=== PATIENT | female | born 1970 | race Caucasian/White ===

== ENCOUNTER 2019-03-01 12:39 | Inpatient (IN) ==
[2019-03-01] MEDS ORDERED: *HR* LORazepam 1 MG TABLET PO ONE (12:43)
--- NOTE | 2019-03-01 12:45 | Emergency Department Note ---
Disposition Clinical Impression: Acute psychosis, Homicidal ideation Disposition: Still a Patient Condition: Good Psych HPI - General Chief Complaint: ED Psychiatric Symptoms Stated Complaint: Anxiety, HI Time Seen by Provider: 03/01/19 12:40 Source: patient Mode of arrival: ambulatory Limitations: no limitations Nursing Notes Reviewed: Yes Vital Signs Reviewed: Yes - History of Present Illness HPI Narrative: Patient presenting to the ED via EMS for anxiety and homicidal ideation. Patient reports she had a recent fall out with her boyfriend and is supposed to be on medication for her chronic mental health disease, however, has been unable to take it for the last 3 days. She has been having auditory and visual hallucinations and having thoughts of harming other people. She also reports that she has been having paranoia about other people attempting to hurt her. She denies any headache or changes in vision. No neck, back, chest or abdominal pain. She denies any ingestions or suicide ideation. - Related Data Home Medications Medication Instructions Recorded Confirmed Escitalopram [Lexapro] 20 mg PO DAILY 03/01/19 03/01/19 Gabapentin [Neurontin] 400 mg PO TID 03/01/19 03/01/19 hydrOXYzine HCl [Hydroxyzine HCl] 50 mg PO Q6H PRN 03/01/19 03/01/19 Allergies Allergy/AdvReac Type Severity Reaction Status Date / Time No Known Allergies Allergy Verified 03/01/19 19:23 Review of Systems: As reviewed in the HPI. All other systems reviewed are negative or normal. Past Medical History - Past Medical History Attestation: Yes The following information was validated with the patient. 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 - Social History Smoking Status: Current every day smoker Smokeless Tobacco Status: No Alcohol use: Reports: occasionally Drug use: Reports: none Physical Exam CONSTITUTIONAL: [well appearing, alert and in no acute distress] EYES: [EOMI, clear conjunctiva, PERRLA] HENT: [Normocephalic, atraumatic, moist mucus membranes, normal oropharynx] NECK: [normal inspection, full ROM, trachea midline, no obvious swelling] PULMONARY: [normal lung sounds bilaterally, normal chest rise and fall, no respiratory distress or stridor, no wheezes, no rales, no rhonchi CARDIOVASCULAR: [regular rate, regular rhythm, normal heart sounds, no murmurs, distal extremities are warm and well perfused] GASTROINSTESTINAL: [soft, non-tender, non-rigid, non-distended, no guarding, no rebound, normal bowel sounds] GENITOURINARY/RECTAL: [deferred] NEUROLOGIC: [Alert, oriented x3, normal speech, moves all extremities] EXTREMITIES: [Normal inspection, full ROM, no tenderness, no pedal edema, normal capillary refill] MUSCULOSKELETAL: [no gross deformities, atraumatic] SKIN: [No cyanosis, no diaphoresis, normal color, warm, no rash] PSYCHIATRIC: [normal mood and affect] Course Vital Signs Temperature 98.3 F 03/01/19 12:41 Pulse Rate 95 03/01/19 12:41 Respiratory Rate 16 03/01/19 12:41 Blood Pressure 121/84 03/01/19 12:41 O2 Sat by Pulse Oximetry 95 03/01/19 12:41 Temperature 97.6 F 03/01/19 16:50 Pulse Rate 86 03/01/19 16:50 Respiratory Rate 16 03/01/19 16:50 Blood Pressure 102/66 03/01/19 16:50 O2 Sat by Pulse Oximetry 97 03/01/19 16:50 Oxygen Delivery Oxygen Delivery Room Air Psych - Lab Data Result diagrams: 03/01/19 12:43 03/01/19 12:43 Lab Results 03/01/19 03/01/19 03/01/19 Range/Units 12:43 12:43 12:43 WBC 7.2 (4.3-11.1) K/mcL RBC 3.93 (3.82-4.97) M/mcL Hgb 8.9 L (11.5-15.4) g/dL Hct 29.8 L (35.3-44.9) % MCV 75.8 L (83.0-100.0) fL MCH 22.6 L (28.0-33.3) pg MCHC 29.9 L (31.6-35.5) g/dL RDW 18.4 H (11.5-14.5) % Plt Count 434 H (140-400) K/mcL MPV 8.6 L (9.4-12.4) fL Immature Gran % 0.1 (0-4) % Seg Neutrophils % 61.2 % Lymphocytes % 30.9 % Monocytes % 6.4 % Eosinophils % 0.7 % Basophils % 0.7 % Neutrophils # 4.4 (1.6-8.9) K/mcL Lymphocytes # 2.2 (0.6-4.6) K/mcL Monocytes # 0.5 (0.0-1.3) K/mcL Eosinophils # 0.1 (0.0-0.6) K/mcL Basophils # 0.1 (0.0-0.2) K/mcL Sodium 138 (136-145) mEq/L Potassium 4.0 (3.5-5.1) mEq/L Chloride 108 H (98-107) mEq/L Carbon Dioxide 22 L (23-29) mEq/L BUN 5 L (6-20) mg/dL Creatinine 0.73 (0.60-1.20) mg/dL Est GFR ( Amer) > 60 (> 60) Est GFR (Non-Af Amer) > 60 (> 60) BUN/Creatinine Ratio 7 (6-26) Glucose 94 (70-105) mg/dL Calculated Osmolality 283 (280-300) Calcium 8.9 (8.6-10.3) mg/dL TSH 3.563 (0.340-5.600) mcIU/mL Serum , Qual Negative (Negative) Salicylates 13.8 L (15.0-30.0) mg/dL Acetaminophen < 10 L (10-20) mcg/mL Ethyl Alcohol < 10 (Less than 10) mg/dL Psychiatric Medical Clearance - Medical Clearance Checklist Medical History: No Social History Section defined Current Vitals: Last Vital Signs Temp 97.6 F 03/01/19 16:50 Pulse 86 03/01/19 16:50 Resp 16 03/01/19 16:50 BP 102/66 03/01/19 16:50 Pulse Ox 97 03/01/19 16:50 Psychiatric Lab Panel: Drug Levels and Toxicity 03/01/19 12:43 Acetaminophen < 10 L Ethyl Alcohol < 10 Abnormal Labs: Abnormal lab results Hgb 8.9 g/dL (11.5-15.4) L 03/01/19 12:43 Hct 29.8 % (35.3-44.9) L 03/01/19 12:43 MCV 75.8 fL (83.0-100.0) L 03/01/19 12:43 MCH 22.6 pg (28.0-33.3) L 03/01/19 12:43 MCHC 29.9 g/dL (31.6-35.5) L 03/01/19 12:43 RDW 18.4 % (11.5-14.5) H 03/01/19 12:43 Plt Count 434 K/mcL (140-400) H 03/01/19 12:43 MPV 8.6 fL (9.4-12.4) L 03/01/19 12:43 Chloride 108 mEq/L (98-107) H 03/01/19 12:43 Carbon Dioxide 22 mEq/L (23-29) L 03/01/19 12:43 BUN 5 mg/dL (6-20) L 03/01/19 12:43 Salicylates 13.8 mg/dL (15.0-30.0) L 03/01/19 12:43 Acetaminophen < 10 mcg/mL (10-20) L 03/01/19 12:43 Statement of Medical Clearance: I have evaluated the patient, reviewed diagnostic information, and certify that the patient's medical condition is sufficiently stable that transfer to the psychiatric unit does not pose a significant risk of deterioration.
[2019-03-01 13:13] LABS: Basophils # 0.1 K/mcL (0.0-0.2); Basophils % 0.7 %; Eosinophils # 0.1 K/mcL (0.0-0.6); Eosinophils % 0.7 %; Hematocrit 29.8 % (35.3-44.9); Hemoglobin 8.9 g/dL (11.5-15.4); Immature Granulocytes % 0.1 % (0-4); Lymphocytes # 2.2 K/mcL (0.6-4.6); Lymphocytes % 30.9 %; Mean Corpuscular HGB Conc 29.9 g/dL (31.6-35.5); Mean Corpuscular Hemoglobin 22.6 pg (28.0-33.3); Mean Corpuscular Volume 75.8 fL (83.0-100.0); Mean Platelet Volume 8.6 fL (9.4-12.4); Monocytes # 0.5 K/mcL (0.0-1.3); Monocytes % 6.4 %; Neutrophils # 4.4 K/mcL (1.6-8.9); Platelet Count 434 K/mcL (140-400); Red Blood Count 3.93 M/mcL (3.82-4.97); Red Cell Distribution Width 18.4 % (11.5-14.5); Segmented Neutrophils % 61.2 %
[2019-03-01 13:26] LABS: Acetaminophen < 10 mcg/mL (10-20); BUN/Creatinine Ratio 7 (6-26); Blood Urea Nitrogen 5 mg/dL (6-20); Calcium 8.9 mg/dL (8.6-10.3); Carbon Dioxide 22 mEq/L (23-29); Chloride 108 mEq/L (98-107); Ethanol < 10 mg/dL (Less than 10); Glucose 94 mg/dL (70-105); Osmolality,Calculated 283 (280-300); Salicylate 13.8 mg/dL (15.0-30.0); Sodium 138 mEq/L (136-145); eGFR For Non-African Americans > 60 (> 60)
[2019-03-01 13:39] LABS: Thyroid Stimulating Hormone 3.563 mcIU/mL (0.340-5.600)
--- NOTE | 2019-03-01 14:26 | Emergency Department Note ---
Disposition Clinical Impression: Acute psychosis, Homicidal ideation Disposition: Still a Patient Condition: Good Forms: ED Satisfaction Letter General Adult HPI - General Chief complaint: ED Psychiatric Symptoms Stated complaint: Anxiety, HI Time Seen by Provider: 03/01/19 12:40 Source: patient Mode of arrival: ambulatory Limitations: no limitations - History of Present Illness Pain Scale: 0 - Related Data Home Medications Medication Instructions Recorded Confirmed Citalopram [CeleXA] 20 mg PO DAILY 03/01/19 03/01/19 Gabapentin [Neurontin] 400 mg PO TID 03/01/19 03/01/19 hydrOXYzine HCl [Hydroxyzine HCl] 50 mg PO Q6H 03/01/19 03/01/19 Allergies Allergy/AdvReac Type Severity Reaction Status Date / Time No Known Allergies Allergy Verified 03/01/19 11:12 Past Medical History - Past Medical History Medical history: Reports: no medical history Psychiatric history: Reports: bipolar, depression, schizophrenia, previous psychiatric hospitalization 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 - Social History Smoking Status: Current every day smoker Smokeless Tobacco Status: No Alcohol use: Reports: occasionally Drug use: Reports: none Physical Exam - General Limitations: no limitations General appearance: in no apparent distress Course Vital Signs Temperature 98.3 F 03/01/19 12:41 Pulse Rate 95 03/01/19 12:41 Respiratory Rate 16 03/01/19 12:41 Blood Pressure 121/84 03/01/19 12:41 O2 Sat by Pulse Oximetry 95 03/01/19 12:41 Temperature 98.3 F 03/01/19 12:41 Pulse Rate 95 03/01/19 12:41 Respiratory Rate 16 03/01/19 12:41 Blood Pressure 121/84 03/01/19 12:41 O2 Sat by Pulse Oximetry 95 03/01/19 12:41 Oxygen Delivery Oxygen Delivery Room Air Medical Decision Making - Lab Data Result diagrams: 03/01/19 12:43 03/01/19 12:43 Lab Results 03/01/19 03/01/19 03/01/19 Range/Units 12:43 12:43 12:43 WBC 7.2 (4.3-11.1) K/mcL RBC 3.93 (3.82-4.97) M/mcL Hgb 8.9 L (11.5-15.4) g/dL Hct 29.8 L (35.3-44.9) % MCV 75.8 L (83.0-100.0) fL MCH 22.6 L (28.0-33.3) pg MCHC 29.9 L (31.6-35.5) g/dL RDW 18.4 H (11.5-14.5) % Plt Count 434 H (140-400) K/mcL MPV 8.6 L (9.4-12.4) fL Immature Gran % 0.1 (0-4) % Seg Neutrophils % 61.2 % Lymphocytes % 30.9 % Monocytes % 6.4 % Eosinophils % 0.7 % Basophils % 0.7 % Neutrophils # 4.4 (1.6-8.9) K/mcL Lymphocytes # 2.2 (0.6-4.6) K/mcL Monocytes # 0.5 (0.0-1.3) K/mcL Eosinophils # 0.1 (0.0-0.6) K/mcL Basophils # 0.1 (0.0-0.2) K/mcL Sodium 138 (136-145) mEq/L Potassium 4.0 (3.5-5.1) mEq/L Chloride 108 H (98-107) mEq/L Carbon Dioxide 22 L (23-29) mEq/L BUN 5 L (6-20) mg/dL Creatinine 0.73 (0.60-1.20) mg/dL Est GFR ( Amer) > 60 (> 60) Est GFR (Non-Af Amer) > 60 (> 60) BUN/Creatinine Ratio 7 (6-26) Glucose 94 (70-105) mg/dL Calculated Osmolality 283 (280-300) Calcium 8.9 (8.6-10.3) mg/dL TSH 3.563 (0.340-5.600) mcIU/mL Serum , Qual Negative (Negative) Salicylates 13.8 L (15.0-30.0) mg/dL Acetaminophen < 10 L (10-20) mcg/mL Ethyl Alcohol < 10 (Less than 10) mg/dL Attestation Statement - Attestation Attestation: I examined this patient and my medical decision-making was reviewed with the Resident Physician. I agree with the documented findings, disposition and treatment plan as described except to the extent set forth below. 48 year old female presents to the ED from [facility] for pysch evaluation adn has a histor of delusional schizophrenia and recently became homicidal towards her boyfriend. MEdically cleared and 1A has been consulted
[2019-03-01] MEDS ORDERED: Haloperidol Lactate 5 MG/ML VIAL IM PRN (16:22)
[2019-03-01] MEDS ORDERED: Mag Hydrox/Al Hydrox/Simeth 30 ML UDC PO PRN (16:22)
[2019-03-01] MEDS ORDERED: *HR* LORazepam 2 MG/ML VIAL IM PRN (16:22)
[2019-03-01] MEDS ORDERED: traZODone 50 MG TABLET PO PRN (16:22)
[2019-03-01] MEDS ORDERED: hydrOXYzine pamoate 25 MG CAPSULE PO PRN (16:22)
[2019-03-01] MEDS ORDERED: *HR* LORazepam 1 MG TABLET PO PRN (16:22)
[2019-03-01] MEDS ORDERED: MOM Conc 10 ML UD.LIQ PO PRN (16:22)
[2019-03-01] MEDS: Ibuprofen 400 MG TABLET PO PRN (20:23)
[2019-03-01] MEDS: Nicotine 21 MG PATCH.TD24 TD SCH (20:25)
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
[2019-03-02] MEDS: Gabapentin 400 MG CAPSULE PO SCH ×3 (09:53→20:43)
[2019-03-02] MEDS: Nicotine 21 MG PATCH.TD24 TD SCH (09:53)
[2019-03-02] MEDS: Ibuprofen 400 MG TABLET PO PRN (11:50)
[2019-03-02] MEDS: hydrOXYzine pamoate 25 MG CAPSULE PO PRN (19:12)
[2019-03-03] MEDS: Gabapentin 400 MG CAPSULE PO SCH ×3 (08:56→20:15)
[2019-03-03] MEDS: Nicotine 21 MG PATCH.TD24 TD SCH (08:56)
--- NOTE | 2019-03-03 09:15 | Psychiatry Progress Note ---
Date of Encounter: 03/03/19 Time of Encounter: 09:10 Subjective Interval history: Client is doing better. Tearful this morning because she accidentally left a paper with phone numbers on it in her shirt pocket and she then laundered the shirt. However, she is using her coping skills and working on having a positive attitude. She is journaling and supporting the other patients. She states if she keeps her mind active the voices leave her alone. Feels AH are nearing her baseline. Still having VH but they are fairly benign. A new girl was admitted who is very psychotic. Client states she has been like that a number of times in her life and she came to the hospital because she knew she would be in that state if she did not get help. Seroquel started last night and seems to be working. Depressed but denies SI, intent, or plan. Future oriented. Needs help with housing. Suspect she will be ready for discharge early this week. Review of Systems Constitutional: Denies: fever, chills, weakness, weight change Eyes: Denies: eye pain, vision change Ears, Nose, Throat: Denies: ear pain, throat pain, dental pain, hearing loss, congestion Cardiovascular: Denies: chest pain, palpitations, dyspnea on exertion Respiratory: Denies: cough, dyspnea, wheezes Gastrointestinal: Denies: abdominal pain, nausea, vomiting, diarrhea, constipation Musculoskeletal: Denies: joint swelling, joint pain Neurological: Denies: headache, weakness, numbness, memory loss Results - Vital Signs Vital Signs: Temp Pulse Resp BP Pulse Ox 97.8 F 93 16 102/71 95 03/03/19 08:47 03/03/19 08:47 03/03/19 08:47 03/03/19 08:47 03/03/19 08:47 Assessment and Plan (1) Schizophrenia Current visit: Yes Status: Acute Plan: Continue hospitalization, Close observation, Suicide Precautions per unit protocol, Encourage participation in unit milieu, Group Therapy, Monitor sleep, Monitor appetite Risks, benefits, side effects, alternatives discussed w/pt: Yes Patient agreeable to treatment: Yes Qualifiers: Schizophrenia type: unspecified Qualified Code(s): F20.9 - Schizophrenia, unspecified Consult Discharge Plan - Plan Referrals: NONE,PCP [Primary Care Provider] - Psychiatry Exam - Constitutional Vitals: Temp Pulse Resp BP Pulse Ox 97.8 F 93 16 102/71 95 03/03/19 08:47 03/03/19 08:47 03/03/19 08:47 03/03/19 08:47 03/03/19 08:47 General appearance: age & developmentally appropriate, well-groomed, well- nourished - Musculoskeletal Gait: normal Station: relaxed Strength & Tone: normal for patient - Psychiatric Patient Orientation: Yes Person, Yes Time, Yes Place Level of alertness: Alert Behavior: calm, cooperative Psychomotor activity: Normal Eye Contact: Maintains Eye Contact Mood Description: Depressed, Anxious Affect description: congruent with mood Speech Volume: Normal Speech pattern: normal rate, normal rhythm, normal tone, fluent, spontaneous Language & Vocabulary: consistent with education Thought Process: Linear, Goal Oriented Thought Content: No Suicidal ideation, No Homicidal ideation, No Overt delusions Perceptual Disturbances: Yes Auditory hallucinations, Yes Visual hallucinations Attention Span Ability: Capable of Focused Attention Memory Description: Grossly Intact Patient Reliability: Reliable Historian Fund of knowledge: Yes abstraction ability, Yes aware of current events Intelligence Estimate: Average Judgment: Fair Insight: Partial
[2019-03-03] MEDS: hydrOXYzine pamoate 25 MG CAPSULE PO PRN ×2 (10:29→15:32)
[2019-03-04] MEDS: Gabapentin 400 MG CAPSULE PO SCH ×3 (08:40→20:44)
[2019-03-04] MEDS: hydrOXYzine pamoate 25 MG CAPSULE PO PRN ×2 (08:43→20:44)
[2019-03-04] MEDS: Nicotine 21 MG PATCH.TD24 TD SCH (08:43)
--- NOTE | 2019-03-04 09:15 | Psychiatry Progress Note ---
Date of Encounter: 03/04/19 Time of Encounter: 09:13 Subjective Interval history: Patient feels the medication is helpful. She says that she is no longer having visual hallucinations of her close coming apart and then knitting themselves back together. 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 She reported some nausea and vomiting last night. Review of Systems Psychiatric: Reports: depression, abnormal sleep pattern, suicidal ideation, change in appetite, auditory hallucinations, hopelessness Results - Vital Signs Vital Signs: Temp Pulse Resp BP Pulse Ox 97.3 F L 80 14 112/73 97 03/04/19 09:00 03/04/19 09:00 03/04/19 09:00 03/04/19 09:00 03/04/19 09:00 Assessment and Plan (1) Schizophrenia Current visit: Yes Status: Acute Plan: Continue hospitalization, Close observation, Suicide Precautions per unit protocol, Encourage participation in unit milieu, Group Therapy, Monitor sleep, Monitor appetite Additional Plan: Continue current medications. Encourage group attendance. Meet with therapist to discuss linkage options. Risks, benefits, side effects, alternatives discussed w/pt: Yes Patient agreeable to treatment: Yes Qualifiers: Schizophrenia type: unspecified Qualified Code(s): F20.9 - Schizophrenia, unspecified Consult Discharge Plan - Plan Referrals: NONE,PCP [Primary Care Provider] - Psychiatry Exam - Constitutional Vitals: Temp Pulse Resp BP Pulse Ox 97.3 F L 80 14 112/73 97 03/04/19 09:00 03/04/19 09:00 03/04/19 09:00 03/04/19 09:00 03/04/19 09:00 General appearance: disheveled - Musculoskeletal Gait: slow Station: stooped Strength & Tone: mild weakness - Psychiatric Patient Orientation: Yes Person, Yes Time, Yes Place Level of alertness: Alert Behavior: tearful Psychomotor activity: Slowed Eye Contact: Minimal Contact Mood Description: Depressed Patient description of mood: a little better Affect description: dysphoric Speech Volume: Normal Speech pattern: slowed Language & Vocabulary: consistent with education Thought Process: Intact Thought Content: Yes Suicidal ideation, No Homicidal ideation Perceptual Disturbances: Yes Auditory hallucinations, No Visual hallucinations Attention Span Ability: Capable of Focused Attention Memory Description: Grossly Intact Patient Reliability: Reliable Historian Fund of knowledge: Yes abstraction ability, Yes aware of current events Intelligence Estimate: Average Judgment: Fair Insight: Partial
--- NOTE | 2019-03-05 07:59 | Discharge Summary ---
Date of Encounter: 03/05/19 Time of Encounter: 07:55 Diagnosis - Discharge Diagnosis (1) Schizophrenia Status: Acute Qualifiers: Schizophrenia type: unspecified Qualified Code(s): F20.9 - Schizophrenia, unspecified Medications - Discharge Medications Prescriptions: hydrOXYzine HCl [Hydroxyzine HCl] 50 mg PO Q6H PRN #60 tablet PRN Reason: ANXIETY/ITCHING Escitalopram [Lexapro] 20 mg PO DAILY #30 tablet Quetiapine Fumarate [Seroquel] 50 mg PO HS #30 tablet Gabapentin [Neurontin] 400 mg PO TID 03/01/19 [History] Escitalopram [Lexapro] 20 mg PO DAILY #30 tablet 03/05/19 [Rx] Quetiapine Fumarate [Seroquel] 50 mg PO HS #30 tablet 03/05/19 [Rx] hydrOXYzine HCl [Hydroxyzine HCl] 50 mg PO Q6H PRN #60 tablet 03/05/19 [Rx] Allergy/AdvReac Type Severity Reaction Status Date / Time No Known Allergies Allergy Verified 03/01/19 19:23 Results Procedures and tests throughout hospitalization: Completed Lab Orders Category Date Time Status Acetaminophen Stat Lab 03/01/19 12:43 Completed Basic Metabolic Panel Stat Lab 03/01/19 12:43 Completed Complete Blood Count [HEME] Stat Lab 03/01/19 12:43 Completed Ethanol Stat Lab 03/01/19 12:43 Completed HCG,Routine Test Stat Lab 03/01/19 12:43 Completed Salicylate Stat Lab 03/01/19 12:43 Completed Thyroid Stimulating Hormone Stat Lab 03/01/19 12:43 Completed Provider Date of admission: 03/01/19 16:13 Primary care physician: PCP NONE Discharging clinician: Trudy Messer Psychiatry Exam - Constitutional Vitals: Temp Pulse Resp BP Pulse Ox 97.8 F 70 18 126/83 98 03/04/19 21:00 03/04/19 21:00 03/04/19 21:00 03/04/19 21:00 03/04/19 21:00 General appearance: age & developmentally appropriate, well-groomed, well- nourished - Musculoskeletal Gait: normal Station: relaxed Strength & Tone: normal for patient - Psychiatric Patient Orientation: Yes Person, Yes Time, Yes Place Level of alertness: Alert Behavior: calm, cooperative Psychomotor activity: Normal Eye Contact: Maintains Eye Contact Mood Description: Euthymic/stable Patient description of mood: good Affect description: congruent with mood, full range Speech Volume: Normal Speech pattern: normal rate, normal rhythm, normal tone, fluent, spontaneous Language & Vocabulary: consistent with education Thought Process: Linear, Goal Oriented Thought Content: No Suicidal ideation, No Homicidal ideation, No Overt delusions Perceptual Disturbances: No Auditory hallucinations, No Visual hallucinations Attention Span Ability: Capable of Focused Attention Memory Description: Grossly Intact Patient Reliability: Reliable Historian Fund of knowledge: Yes abstraction ability, Yes aware of current events Intelligence Estimate: Average Judgment: Good Insight: Full Hospital Course Hospital course: Ms. Hills is a 48 year old female who was admitted for auditory and visual hallucinations and noncompliance with medications.Patient was educated of diagnosis and the risk-benefit side effects of this alternative treatment options and was monitored for responsiveness and side effects. Mood anxiety sleep and appetite interest improved as did future orientation. Self-harm thoughts subsided, thinking cleared, psychosis resolved, and mood stabilized. Patient was able to attend both individual and group therapy sessions as well as meet with the psychiatrist daily and urged to discuss any medication or treatment issues or other concerns. The patient was educated primarily by verbal means about their diagnosis and manifestations in their life. The option for treatment including group and individual therapy programming was offered to the patient in addition to the use of medications with all their potential risks, benefits, and side effects as well as the risks of not taking medication and non-adhereance were discussed with the patient at length. The patient was given the opportunity to ask questions and was noted to participate in the treatment in the planning process. The patient felt ready and eager to be discharged from the inpatient psychiatric unit to continue on with treatment as an outpatient. The patient agreed that is they were safe for this disposition. The patient was considered to be able to participate in informed consent and decision making with respect to medical, legal, and financial issues of the time of discharge. At the time of discharge the patient adamantly denied any concerns for lethality including suicidal or homicidal thoughts ideations or plans and was future oriented toward ongoing mental health care. Time spent discussing smoking cessation with patient: 3 to 10 minutes Does patient wish to continue nicotine replacement upon disc: No - Time Spent with Patient Total time spent providing and/or coordinating discharge services: 20 Less than 30 minutes Specific discharge activities: Interval history reviewed. Available labs reviewed . Psychotherapy provided. Patient had an opportunity to ask questions and address concerns. Patient was in agreement with the treatment plan. The risks benefits and side effects of medications were discussed with the patient, including alternatives and treatment. The patient was educated on the abstaining from any alcohol or illicit substances, following up with all scheduled appointments, and taking all medications as prescribed. Assessment and Plan - Patient/Caregiver Discharge Instructions Activity: resume usual activities as tolerated, return to work Diet: regular diet Additional Instructions: Continue current medications. Follow up with outpatient mental health. Encourage continued therapy in a group or individual setting. The patient was discharged to home. - Follow up Plan Follow up with: NONE,PCP [Primary Care Provider] - Functional capacity at discharge: independent ambulation Overall status at discharge: Stable Disposition: Home, Self-Care Quality - Multiple Antipsychotics Patient discharged on 2 or more antipsychotic medications: No Procedures - Procedures Procedures: Medication Management, Crisis Stabilization, Supportive Therapy, Group Therapy, Psychoeducational Therapy
[2019-03-05] MEDS: Gabapentin 400 MG CAPSULE PO SCH (08:57)
[2019-03-05] MEDS: Nicotine 21 MG PATCH.TD24 TD SCH (08:58)
[2019-03-05] MEDS: hydrOXYzine pamoate 25 MG CAPSULE PO PRN (09:00)
[2019-03-05 09:24] VITALS: BP 107/74
== END 2019-03-05 09:35 | disposition home or self-care (01) | DRG 750 ==
LOC: EMEROOARM 12:39 → SUATTDRO 16:13 → 1ANU 16:13
PROVIDERS: ADMIT Psychiatry & Neurology Psychiatry; ATTEND Psychiatry & Neurology Psychiatry